=== PATIENT | female | born 1945 | race Hispanic/Latino ===

== ENCOUNTER → 2017-06-08 | Outpatient (CLI) | payer OTHER, MEDICARE ==
[~2017-06-08] MED LIST: IOPAMIDOL-370 75 ML VIAL IV ONE
== END | disposition home or self-care (01) ==
LOC: RAH 08:33
PROVIDERS: ATTEND Internal Medicine
DX: R10.84 Generalized abdominal pain (principal)
CPT/HCPCS: 74170; Q9967

== ENCOUNTER 2018-03-05 22:34 | Observation (INO) | payer OTHER, MEDICARE ==
[~2018-03-05] VITALS: Ht 157.5 cm; Wt 79.5 kg
[2018-03-05 22:56] LABS: BASOPHILS % (AUTO) 0.7 % (0.0-5.0); EOSINOPHILS % (AUTO) 6.1 % (0.0-8.0); HEMATOCRIT 36.4 % (36-48); LYMPHOCYTES % (AUTO) 25.8 % (21.0-51.0); MEAN CORPUSCULAR HEMOGLOBIN 28.6 pg (27.0-33.0); MEAN CORPUSCULAR HGB CONC 32.6 g/dL (32.0-36.0); MEAN CORPUSCULAR VOLUME 87.7 fL (79-99); MONOCYTES % (AUTO) 7.5 % (3.0-13.0); NEUTROPHILS % (AUTO) 59.9 % (40.0-77.0); NUCLEATED RED BLOOD CELLS 0.2 % (0.0-0.19); PLATELET COUNT (AUTO) 203 K/uL (130-400); RED BLOOD CELL COUNT(AUTO) 4.15 MIL/uL (4.00-5.50); RED CELL DISTRIBUTION WIDTH 14.3 % (11.0-15.5); WHITE BLOOD COUNT (AUTO) 6.7 K/uL (4.8-10.8)
[2018-03-05 23:07] LABS: INR 0.94 (0.85-1.15); PROTHROMBIN TIME 9.9 SEC (9.6-11.6)
[2018-03-05 23:10] LABS: APPEARANCE,URINE Clear (CLEAR); BILIRUBIN,URINE Negative (NEGATIVE); COLOR,URINE Yellow (YELLOW); GLUCOSE, URINE (UA) Negative (NEGATIVE); KETONES,URINE Negative (NEGATIVE); LEUKOCYTE ESTERASE ,URINE Trace (NEGATIVE); NITRATE,URINE Negative (NEGATIVE); OCCULT BLOOD,URINE Negative (NEGATIVE); PH,URINE 5.5 (5.0-8.0); PROTEIN,URINE Trace (NEGATIVE)
[2018-03-05 23:11] LABS: CREATININE 0.8 mg/dL (0.5-1.5); POTASSIUM 3.9 mmol/L (3.5-5.1)
[2018-03-05 23:16] LABS: ALBUMIN 3.5 g/dL (3.5-5.0); BILIRUBIN,TOTAL 0.2 mg/dL (0.2-1.0); TOTAL PROTEIN, SERUM 7.1 g/dL (6.0-8.3)
[2018-03-05 23:22] LABS: B-TYPE NATRIURETIC PEPTIDE 52 pg/mL (0-100)
[2018-03-05 23:30] LABS: BACTERIA,URINE None Seen /HPF (None Seen); MUCUS,URINE Few LPF (None Seen); RBC,URINE None Seen /HPF (0-1); SQUAMOUS EPITHELIAL CELL,UR Few /HPF (0-2)
[2018-03-05] MEDS ORDERED: SODIUM CHLORIDE 0.9% 1000ML 1,000 ML IV ONE (23:52)
[2018-03-06] VITALS (10 sets, daily range): BP systolic 109–153; BP diastolic 58–80
[2018-03-06 00:08] LABS: AMYLASE 51 U/L (25-115); LIPASE 133 U/L (114-286)
[2018-03-06] MEDS ORDERED: DEXTROSE 50%-WATER 50 ML DISP.SYRIN IV PRN (02:45)
[2018-03-06] MEDS ORDERED: GLUCAGON 1MG KIT 1 MG ML IM PRN (02:45)
[2018-03-06] MEDS ORDERED: NITROGLYCERIN 0.4 MG SL TAB SL PRN ×2 (02:45→07:45)
[2018-03-06] MEDS ORDERED: ACETAMINOPHEN 325 MG TAB PO PRN (02:45)
[2018-03-06] MEDS ORDERED: ONDANSETRON HCL 4 MG/2 ML VIAL IV PRN (02:45)
[2018-03-06 02:52] LABS: HEMOGLOBIN A1C 7.5 % (4.0-6.0)
[2018-03-06] MEDS ORDERED: LISI-613 PO (04:14)
[2018-03-06] MEDS ORDERED: LINA5TAB PO (04:14)
[2018-03-06] MEDS ORDERED: ONDA4TAB9 PO (04:20)
[2018-03-06] MEDS ORDERED: ISOS30TA6 PO (04:20)
[2018-03-06] MEDS ORDERED: PARO-37 PO (04:20)
[2018-03-06] MEDS ORDERED: FAMO40TA7 PO (04:24)
[2018-03-06] MEDS ORDERED: ATOR10 PO (04:24)
[2018-03-06] MEDS ORDERED: PANT40TA25 PO (04:28)
[2018-03-06] MEDS ORDERED: LORA10CA9 PO (04:28)
[2018-03-06] MEDS ORDERED: AEC81 PO (04:32)
[2018-03-06] MEDS ORDERED: MECL-111 PO (04:32)
[2018-03-06] MEDS ORDERED: QUET200T58 PO (04:32)
[2018-03-06] MEDS ORDERED: PROM25TA7 PO (04:35)
[2018-03-06] MEDS ORDERED: LOPE2CAP PO (04:35)
[2018-03-06] MEDS ORDERED: NITR0.4T50 SL (04:40)
[2018-03-06] MEDS ORDERED: SIME125C81 PO (04:40)
[2018-03-06] MEDS ORDERED: DIPH1TAB PO (04:41)
[2018-03-06] MEDS ORDERED: DIAZ2TAB3 PO (04:45)
[2018-03-06] MEDS ORDERED: GLYC2TAB21 PO (04:45)
[2018-03-06 04:58] LABS: AMPHET/METH SCREEN,URINE NEGATIVE (NEGATIVE); BARBITURATE SCREEN, URINE NEGATIVE (NEGATIVE); BENZODIAZEPINES SCREEN,URINE NEGATIVE (NEGATIVE); CANNABINOID SCREEN,URINE NEGATIVE (NEGATIVE); COCAINE SCREEN,URINE NEGATIVE (NEGATIVE); OPIATE SCREEN,URINE NEGATIVE (NEGATIVE); PHENCYCLIDINE SCREEN,URINE NEGATIVE (NEGATIVE)
[2018-03-06] MEDS ORDERED: DIATR MEGLU/DIATRIZOATE SODIUM 30 ML BOTTLE ONE (05:40)
[2018-03-06] MEDS: SODIUM CHLORIDE 0.9% 1000ML 1,000 ML IV SCH ×3 (05:41→22:34)
[2018-03-06] MEDS: INSULIN HUMULIN R 100 UNIT/ML 3ML SQ SCH ×4 (06:35→21:00)
[2018-03-06 06:50] LABS: BASOPHILS % (AUTO) 0.4 % (0.0-5.0); EOSINOPHILS % (AUTO) 5.6 % (0.0-8.0); HEMATOCRIT 32.3 % (36-48); LYMPHOCYTES % (AUTO) 33.6 % (21.0-51.0); MEAN CORPUSCULAR HEMOGLOBIN 28.9 pg (27.0-33.0); MEAN CORPUSCULAR HGB CONC 32.8 g/dL (32.0-36.0); MEAN CORPUSCULAR VOLUME 88.2 fL (79-99); MONOCYTES % (AUTO) 8.2 % (3.0-13.0); NEUTROPHILS % (AUTO) 52.2 % (40.0-77.0); PLATELET COUNT (AUTO) 197 K/uL (130-400); RED BLOOD CELL COUNT(AUTO) 3.66 MIL/uL (4.00-5.50); RED CELL DISTRIBUTION WIDTH 14.4 % (11.0-15.5); WHITE BLOOD COUNT (AUTO) 6.1 K/uL (4.8-10.8)
[2018-03-06 07:03] LABS: ALANINE AMINOTRANSFERASE 13 U/L (12-78); ASPARTATE AMINOTRANSFERASE 12 U/L (10-37); BILIRUBIN,TOTAL 0.4 mg/dL (0.2-1.0); CARBON DIOXIDE 29 mmol/L (21-32); CHLORIDE 108 mmol/L (101-111); CHOLESTEROL 106 mg/dL (<200); CREATINE KINASE, TOTAL 37 U/L (21-232); CREATININE 0.9 mg/dL (0.5-1.5); GLOMERULAR FILTR. RATE CALC 65 mL/min (>60); GLUCOSE,RANDOM 126 mg/dL (70-105); HDL CHOLESTEROL 42 mg/dL (35-85); LDL DIRECT 50 mg/dL (0-99); MYOGLOBIN 34 ng/mL (10-92); POTASSIUM 4.2 mmol/L (3.5-5.1); SODIUM SERUM 142 mmol/L (136-145); TOTAL PROTEIN, SERUM 6.4 g/dL (6.0-8.3); TRIGLYCERIDES 118 mg/dL (30-200); TROPONIN I < 0.04 ng/mL (0.00-0.06); UREA NITROGEN, BLOOD 10 mg/dL (7-18)
[2018-03-06] MEDS ORDERED: MECLIZINE HCL 25 MG TABLET PO PRN (07:45)
[2018-03-06] MEDS ORDERED: LORATADINE 10 MG TABLET PO PRN (07:45)
[2018-03-06] MEDS ORDERED: SIMETHICONE 80 MG TAB.CHEW PO PRN (07:45)
[2018-03-06] MEDS ORDERED: DIAZEPAM 2 MG TAB PO PRN (07:45)
[2018-03-06] MEDS ORDERED: GLYCOPYRROLATE 2 MG PO PRN (07:45)
[2018-03-06] MEDS ORDERED: IOHEXOL-350 75 ML VIAL IV ONE (08:28)
[2018-03-06] MEDS ORDERED: PANTOPRAZOLE SODIUM 40 MG TABLET.DR PO SCH (09:00)
[2018-03-06] MEDS ORDERED: LEVOFLOXACIN 250 MG/D5W 50ML 50 ML IV SCH (09:00)
[2018-03-06] MEDS: PAROXETINE HCL 20 MG TABLET PO SCH (10:07)
[2018-03-06] MEDS: LISINOPRIL 20 MG TABLET PO SCH (10:07)
[2018-03-06] MEDS: ISOSORBIDE MONO 30MG TAB SR PO SCH (10:08)
[2018-03-06] MEDS: ASPIRIN 81 MG EC TAB PO SCH (10:08)
[2018-03-06] MEDS: ENOXAPARIN SODIUM 30 MG/0.3 ML SQ SCH (10:09)
--- NOTE | 2018-03-06 10:30 | NUR ---
PATIENT STATES THAT HER CARDIOLOGYST IS DR. RAJAN. HOWEVER, DR. MORRELL IS BREAST WORKER TODAY. I CALLED DR. MORRELL AND INFORMED HIM ABOUT THE CONSULT. PER DR. MORRELL, HE WAS NOT GOING TO SEE THE PATIENT, BECAUSE SHE WAS ALREADY A PATIENT OF DR. RAJAN. I WAS INSTRUCTED TO CALL DR. RAJAN EVEN THOUGH HE IS NOT BREAST WORKER FOR TODAY. DR. RAJAN IS NOW AWARE OF THE CONSULT, HE WILL SEE THE PATIENT LATER TODAY OR TOMORROW.
--- NOTE | 2018-03-06 13:40 | NUR ---
CALL TO [facility] REGARDING CLARIFICATION OF INSURANCE T/C PLACED TO Angel[facility]. [facility] FOR HOSPITALIST, INFORMED THAT PT'S INSURANCE IS UPDATED AND WILL NEED TO SEE ANOTHER PROVIDER, STATES TO CALL WHEN OTHER PROVIDER ACCEPTS.
--- NOTE | 2018-03-06 13:45 | NUR ---
CALL TO DR. MELENDEZ T/C PLACED TO DR. MELENDEZ BY TIP BANDING MACHINE OPERATOR, Tracey FONTANEZ RN., PENDING CALL BACK.
--- NOTE | 2018-03-06 13:47 | NUR ---
CALL BACK FROM DR. MELENDEZ T/C FROM DR. MELENDEZ SPOKE WITH WET PROCESS OPERATOR JANEE ROBERTO AND WAS INFORMED HIM OF PT'S INSURANCE STATUS AND HAS BEEN SEEN ALREADY BY PROVIDER TODAY, STATES WILL COME AND SEE PT TOMORROW AND TO CALL HIM FOR ANY ISSUES.
--- NOTE | 2018-03-06 14:00 | NUR ---
TATIANA/DR. NORA MELENDEZ HERE TO INTRODUCE HIMSELF.
--- NOTE | 2018-03-06 14:35 | NUR ---
CARLOS Trinh PT/SPOUSE, [place] JORGE L, AAOX3, FLAT AFFECT, NO EYE CONTACT- LIVES W SPOUSE, PRIOR TO THIS ADMIT NO DME NO HH, NO MOBILITY DEFICITS; [employer] 5 DAYS WK 4 HRS DAY; HERE FOR SYNCOPE, 2ND EPISODE IN A FEW MONTHS; PCP ESTEE, LAST VISIT [facility], CHANGES TO MEDICINE; ASKED IF KEEPS LOG OF BG OR BP, STATES NO SHE HAS NO ONE TO TAKE HER B, AND NO DOES NOT KEEP RECORD OF BG. ENCOURAGED TO TO SO EVERY TIME THERE IS A CHANGE IN MEDICAIOTN. WILL FOLLOW NEEDED. PLAN IS HOME Addendum: 03/06/18 at 1439 by JUDAH DEJESUS RN CM Amended: Links added.
[2018-03-06] MEDS: METRONIDAZOLE 500 MG TABLET PO SCH ×2 (15:52→20:11)
[2018-03-06] MEDS: FAMOTIDINE 20MG TAB 20 MG TAB PO SCH (20:10)
--- NOTE | 2018-03-06 20:41 | NUR ---
CONSULT DR. RAJAN HERE TO SEE PATIENT. EVALUATED HER AND TOLD HER HE DOES NOT THINK HER PROBLEM IS HEART RELATED.
[2018-03-06] MEDS ORDERED: QUETIAPINE FUMARATE 100 MG TAB PO SCH (21:00)
[2018-03-06] MEDS ORDERED: LINAGLIPTIN 5 MG TABLET PO SCH (21:00)
[2018-03-06] MEDS ORDERED: ATORVASTATIN CALCIUM 10 MG TABLET PO SCH (21:00)
[2018-03-07 04:05] LABS: BASOPHILS % (AUTO) 0.5 % (0.0-5.0); EOSINOPHILS % (AUTO) 6.7 % (0.0-8.0); LYMPHOCYTES % (AUTO) 42.5 % (21.0-51.0); MEAN CORPUSCULAR HEMOGLOBIN 29.4 pg (27.0-33.0); MEAN CORPUSCULAR HGB CONC 33.6 g/dL (32.0-36.0); MEAN CORPUSCULAR VOLUME 87.5 fL (79-99); MONOCYTES % (AUTO) 9.2 % (3.0-13.0); NEUTROPHILS % (AUTO) 41.1 % (40.0-77.0); PLATELET COUNT (AUTO) 173 K/uL (130-400); RED BLOOD CELL COUNT(AUTO) 3.77 MIL/uL (4.00-5.50); RED CELL DISTRIBUTION WIDTH 14.2 % (11.0-15.5); WHITE BLOOD COUNT (AUTO) 5.2 K/uL (4.8-10.8)
[2018-03-07 04:18] LABS: CREATININE 0.9 mg/dL (0.5-1.5); MAGNESIUM 1.9 mg/dL (1.80-2.40); POTASSIUM 3.6 mmol/L (3.5-5.1)
[2018-03-07 04:24] VITALS: BP 145/92
[2018-03-07] MEDS: INSULIN HUMULIN R 100 UNIT/ML 3ML SQ SCH ×2 (06:20→16:30)
[2018-03-07] MEDS: SODIUM CHLORIDE 0.9% 1000ML 1,000 ML IV SCH (06:24)
[2018-03-07] MEDS: METRONIDAZOLE 500 MG TABLET PO SCH ×2 (06:24→14:39)
[2018-03-07 08:00] VITALS: BP_SYST 135; BP_SYST 143; BP_SYST 145; BP_SYST 155; BP_DIAS 67; BP_DIAS 68; BP_DIAS 77; BP_DIAS 78
[2018-03-07] MEDS: ASPIRIN 81 MG EC TAB PO SCH (09:54)
[2018-03-07] MEDS: PAROXETINE HCL 20 MG TABLET PO SCH (09:54)
[2018-03-07] MEDS: FAMOTIDINE 20MG TAB 20 MG TAB PO SCH (09:54)
[2018-03-07] MEDS: LISINOPRIL 20 MG TABLET PO SCH (09:54)
[2018-03-07] MEDS: ENOXAPARIN SODIUM 30 MG/0.3 ML SQ SCH (09:55)
[2018-03-07] MEDS: ISOSORBIDE MONO 30MG TAB SR PO SCH (09:55)
[2018-03-07 12:00] VITALS: BP 127/67
[2018-03-07 16:00] VITALS: BP 137/73
--- NOTE | 2018-03-07 18:20 | NUR ---
DISCHARGE PATIENT AND GIVEN DISCHARGE INSTRUCTIONS AND EDUCATION IN [place] ON FOLLOW UP APPOINTMENTS, NEW PRESCRIBED MEDICATIONS AND DISCONTINUED MEDICATIONS. PATIENT VERBALIZED UNDERSTANDING OF ALL EDUCATION GIVEN VIA TEACH BACK. IV DISCONTINUED, CATHETER INTACT. NO CONCERNS VOICED. NO DISTRESS NOTED UPON DISCHARGE. PATIENT LEFT VIA WHEELCHAIR TO PRIVATE CAR. PATIENT LEFT PHONE CARBON COATING MACHINE OPERATOR, SECURITY CALLED, CHARGED PLACED ON A BAG WITH PATIENT INFO ON IT.
== END 2018-03-07 18:20 | disposition home or self-care (01) ==
LOC: EDH 22:34 → EDHIP 03-06 02:19 → INTOOBSV 03-06 02:19 → 3AH 03-06 02:40
PROVIDERS: ADMIT Internal Medicine Critical Care Medicine; ATTEND Internal Medicine Critical Care Medicine
DX: R55 Syncope and collapse (principal); R10.9 Unspecified abdominal pain; E66.9 Obesity, unspecified; R19.7 Diarrhea, unspecified; E86.0 Dehydration; I10 Essential (primary) hypertension; E11.9 Type 2 diabetes mellitus without complications; E66.01 Morbid (severe) obesity due to excess calories; E78.5 Hyperlipidemia, unspecified; G47.33 Obstructive sleep apnea (adult) (pediatric); F41.9 Anxiety disorder, unspecified; Z95.0 Presence of cardiac pacemaker; Z83.3 Family history of diabetes mellitus; Z82.49 Family history of ischemic heart disease and other diseases of the circulatory system; Z80.0 Family history of malignant neoplasm of digestive organs; Z79.899 Other long term (current) drug therapy
CPT/HCPCS: 36415 ×3; 70450; 71045; 74178; 80048; 80053 ×2; 80061; 80305; 81001; 82150; 82550 ×2; 82948 ×7; 83036; 83630; 83690; 83735 ×2; 83874; 83880; 84443; 84484 ×3; 85025 ×3; 85610; 85730; 87088; 87177; 87324; 93005 ×3; 93306; 93880; 96361 ×2; 96365; 96372 ×2; 99284; G0378 ×40; J1650 ×2; J1956; J7030 ×4; Q9963; Q9967

== ENCOUNTER → 2018-10-08 | Outpatient (CLI) | payer OTHER, MEDICARE ==
[~2018-10-08] MED LIST changes: +AEC81 PO; +ATOR10 PO; +DIAZ2TAB3 PO; +IOHEXOL-350 75 ML VIAL IV ONE; -IOPAMIDOL-370 75 ML VIAL IV ONE; +ISOS30TA6 PO; +LINA5TAB PO; +LISI-613 PO; +LOPE2CAP PO; +LORA10CA9 PO; +MECL-111 PO; +NITR0.4T50 SL; +ONDA4TAB9 PO; +PARO-37 PO; +QUET200T29 PO; +SIME125C81 PO
== END | disposition home or self-care (01) ==
LOC: RAH 09:07
PROVIDERS: ATTEND Family Medicine
DX: R22.31 Localized swelling, mass and lump, right upper limb (principal); M25.841 Other specified joint disorders, right hand
CPT/HCPCS: 73201; Q9967

== ENCOUNTER → 2019-04-23 | Outpatient (CLI) | payer OTHER, MEDICARE ==
[~2019-04-23] MED LIST changes: -IOHEXOL-350 75 ML VIAL IV ONE; -MECL-111 PO; +MECL-160 PO; +ONDA-104 PO; -ONDA4TAB9 PO
== END | disposition home or self-care (01) ==
LOC: SHCH 10:53
PROVIDERS: ATTEND Internal Medicine Cardiovascular Disease
DX: I51.7 Cardiomegaly (principal)
CPT/HCPCS: 93306; 93356

== ENCOUNTER → 2019-04-29 | Outpatient (CLI) | payer OTHER, MEDICARE ==
[~2019-04-29] VITALS: Ht 157.5 cm; Wt 78.9 kg
[~2019-04-29] MED LIST changes: +REGADENOSON 0.4 MG/5 ML PF SYG IVP SCH
== END | disposition home or self-care (01) ==
LOC: SHCH 08:12
PROVIDERS: ATTEND Internal Medicine Cardiovascular Disease
DX: I10 Essential (primary) hypertension (principal); E11.9 Type 2 diabetes mellitus without complications; R94.31 Abnormal electrocardiogram [ECG] [EKG]; R06.02 Shortness of breath
CPT/HCPCS: 78452; 93017; 96374; A9500 ×2; J2785

== ENCOUNTER 2019-10-09 10:10 | Day surgery (SDC) | payer OTHER, MEDICARE ==
[2019-10-07 09:49] LABS: BASOPHILS % (AUTO) 0.5 % (0.0-5.0); EOSINOPHILS % (AUTO) 5.7 % (0.0-8.0); HEMATOCRIT 36.7 % (36-48); LYMPHOCYTES % (AUTO) 30.1 % (21.0-51.0); MEAN CORPUSCULAR HEMOGLOBIN 28.9 pg (27.0-33.0); MEAN CORPUSCULAR HGB CONC 32.4 g/dL (32.0-36.0); MEAN CORPUSCULAR VOLUME 89.1 fL (79-99); MONOCYTES % (AUTO) 7.4 % (3.0-13.0); NEUTROPHILS % (AUTO) 56.1 % (40.0-77.0); PLATELET COUNT (AUTO) 256 K/uL (130-400); RED BLOOD CELL COUNT(AUTO) 4.12 MIL/uL (4.00-5.50); RED CELL DISTRIBUTION WIDTH 15.3 % (11.0-15.5); WHITE BLOOD COUNT (AUTO) 6.1 K/uL (4.8-10.8)
[2019-10-07 10:01] LABS: INR 0.88 (0.85-1.15); PARTIAL THROMBOPLASTIN TIME 25.9 SEC (26.3-35.5); PROTHROMBIN TIME 9.5 SEC (9.6-11.6)
[2019-10-07 10:04] LABS: CREATININE 0.8 mg/dL (0.5-1.5); POTASSIUM 4.9 mmol/L (3.5-5.1)
[2019-10-09] VITALS (7 sets, daily range): BP systolic 90–145; BP diastolic 43–71
[~2019-10-09] VITALS: Ht 154.9 cm; Wt 78.0 kg
[~2019-10-09 10:10] MED LIST changes: -DIAZ2TAB3 PO; +GLYC2TAB21 PO; -LOPE2CAP PO; -MECL-160 PO; -ONDA-104 PO; +PANT40TA PO; -REGADENOSON 0.4 MG/5 ML PF SYG IVP SCH
[2019-10-09] MEDS ORDERED: ONDA4TAB4 PO (11:30)
[2019-10-09] MEDS ORDERED: LIDOCAINE HCL 1% MDV 50ML VIAL ONE (12:33)
[2019-10-09] MEDS ORDERED: MEPERIDINE-PF 25 MG/ML SYG ONE ×2 (12:33→13:32)
[2019-10-09] MEDS ORDERED: MIDAZOLAM HCL 1 MG/ML 2ML VIAL ONE ×2 (12:33→13:32)
[2019-10-09] MEDS ORDERED: CEFAZOLIN SODIUM 1 GM VIAL ONE (12:33)
[2019-10-09] MEDS ORDERED: BUPIVACAINE/PF 0.25% 30ML VIAL IJ ONE (12:33)
[2019-10-09] MEDS ORDERED: VANCOMYCIN 1GM+NS 250ML 500 ML IV ONE (13:01)
[2019-10-09] MEDS ORDERED: TRAM50TA4 PO (13:59)
[2019-10-09] MEDS ORDERED: ACETAMINOPHEN-CODEINE 300/30MG TAB PO PRN (14:00)
--- NOTE | 2019-10-09 17:11 | NUR ---
PT AAOX3, NO DISTRESS, NO C/O PAIN TO LUE. PACEMAKER SITE DRESSING IS D/T WITH QUATER SIZE SCANT AMOUNT OF RED BLOOD. NO OOZING OR ACTIVE BLEEDING, NO HEMATOMA NOTED. INSTRUCTIONS AND PRESCRIPTION GIVEN TO SPOUSE. PT DRESSED WITH ASSISTANCE, IV D/C CATHETER INTACT. PT TAKEN OUT TO CAR VIA W/C, DRIVEN HOME BY SPOUSE. PT STABLE. PERSONAL BELONGING WITH PT.
== END 2019-10-09 17:11 | disposition home or self-care (01) ==
LOC: DAH 10:10
PROVIDERS: ATTEND Internal Medicine Cardiovascular Disease
DX: Z45.010 Encounter for checking and testing of cardiac pacemaker pulse generator [battery] (principal); I49.5 Sick sinus syndrome; I48.0 Paroxysmal atrial fibrillation; I10 Essential (primary) hypertension; E11.9 Type 2 diabetes mellitus without complications; E78.5 Hyperlipidemia, unspecified; K21.9 Gastro-esophageal reflux disease without esophagitis; Z98.890 Other specified postprocedural states; Z79.84 Long term (current) use of oral hypoglycemic drugs; Z79.82 Long term (current) use of aspirin; Z79.899 Other long term (current) drug therapy
CPT/HCPCS: 33228; 36415; 80048; 82948; 85025; 85610; 85730; A4215; A4216; A4221; A4222; A4223 ×3; A4606; A4663; C1785; J2175 ×2; J2250 ×2; J3370; J3490 ×2; 99156; 99157; J0690

== ENCOUNTER → 2020-01-14 | Outpatient (CLI) | payer OTHER, MEDICARE ==
[~2020-01-14] MED LIST changes: +ONDA4TAB4 PO; +TRAM50TA4 PO
== END | disposition home or self-care (01) ==
LOC: SHCH 15:36
PROVIDERS: ATTEND Internal Medicine Cardiovascular Disease
DX: I87.2 Venous insufficiency (chronic) (peripheral) (principal)
CPT/HCPCS: 93970

== ENCOUNTER → 2021-06-06 | Outpatient (CLI) | payer OTHER, MEDICARE ==
[~2021-06-06] MED LIST changes: -ISOS30TA6 PO; +ISOS30TA92 PO; -LISI-613 PO; +LISI20TA24 PO; -QUET200T29 PO; +QUET200T30 PO
== END | disposition home or self-care (01) ==
LOC: SHCH 09:28
PROVIDERS: ATTEND Internal Medicine Cardiovascular Disease
DX: I73.9 Peripheral vascular disease, unspecified (principal)
CPT/HCPCS: 93925

== ENCOUNTER 2022-08-21 04:11 | Emergency (ER) | payer OTHER, MEDICARE ==
[~2022-08-21] VITALS: Ht 157.5 cm; Wt 83.9 kg
[~2022-08-21 04:11] MED LIST changes: +ACET-2079 PO; +DILT120C89 PO; +FAMO20TA8 PO; +IBUP-1493 PO; +MECL-160 PO; +MELO-106 PO; +ORPH100T4 PO; +PANT40TA54 PO; +PIOG15TA66 PO
[2022-08-21 04:35] LABS: BASOPHILS % (AUTO) 0.4 % (0.0-5.0); EOSINOPHILS % (AUTO) 4.4 % (0.0-8.0); HEMATOCRIT 33.9 % (36-48); LYMPHOCYTES % (AUTO) 20.1 % (21.0-51.0); MEAN CORPUSCULAR HEMOGLOBIN 28.8 pg (27.0-33.0); MEAN CORPUSCULAR HGB CONC 32.2 g/dL (32.0-36.0); MEAN CORPUSCULAR VOLUME 89.4 fL (79-99); MONOCYTES % (AUTO) 8.8 % (3.0-13.0); NEUTROPHILS % (AUTO) 65.9 % (40.0-77.0); PLATELET COUNT (AUTO) 176 K/uL (130-400); RED BLOOD CELL COUNT(AUTO) 3.79 MIL/uL (4.00-5.50); RED CELL DISTRIBUTION WIDTH 16.2 % (11.0-15.5); WHITE BLOOD COUNT (AUTO) 7.9 K/uL (4.8-10.8)
[2022-08-21 04:51] LABS: APPEARANCE,URINE CLEAR (CLEAR); BILIRUBIN,URINE NEGATIVE (NEGATIVE); GLUCOSE, URINE (UA) NEGATIVE (NEGATIVE); KETONES,URINE NEGATIVE (NEGATIVE); LEUKOCYTE ESTERASE ,URINE 75 Leu/uL (NEGATIVE); NITRATE,URINE NEGATIVE (NEGATIVE); OCCULT BLOOD,URINE NEGATIVE (NEGATIVE); PH,URINE 5.5 (5.0-8.0); PROTEIN,URINE NEGATIVE (NEGATIVE); UROBILINOGEN,URINE 0.2 mg/dL (0.2-1.0)
[2022-08-21 04:55] LABS: COLOR,URINE Light-Yellow (YELLOW)
[2022-08-21 04:56] LABS: CREATININE 0.8 mg/dL (0.5-1.5); POTASSIUM 4.6 mmol/L (3.5-5.1)
[2022-08-21 05:00] LABS: ALBUMIN 3.7 g/dL (3.5-5.0); TOTAL PROTEIN, SERUM 7.4 g/dL (6.0-8.3)
[2022-08-21 05:01] LABS: BACTERIA,URINE FEW /HPF (None Seen); RBC,URINE 0-1 /HPF (0-1); SQUAMOUS EPITHELIAL CELL,UR RARE /HPF (0-2)
[2022-08-21 05:36] VITALS: BP 152/60; PULSE 81; RESP 16
[2022-08-21] MEDS ORDERED: IBUP-1493 PO (06:27)
[2022-08-21] MEDS ORDERED: MECL-262 PO (06:27)
== END 2022-08-21 06:47 | disposition home or self-care (01) ==
LOC: EDH 04:11
DX: R51.9 Headache, unspecified (principal); R42 Dizziness and giddiness; R06.02 Shortness of breath; R11.0 Nausea; I10 Essential (primary) hypertension; E11.9 Type 2 diabetes mellitus without complications; E78.00 Pure hypercholesterolemia, unspecified; Z90.49 Acquired absence of other specified parts of digestive tract; Z88.0 Allergy status to penicillin
CPT/HCPCS: 36415; 71045; 80053; 81001; 83874; 83880; 84484; 85025; 87077; 87088; 87186; 93005

== ENCOUNTER 2023-02-23 20:57 | Emergency (ER) | payer MEDICARE, OTHER ==
[~2023-02-23] VITALS: Ht 152.4 cm; Wt 81.6 kg
[~2023-02-23 20:57] MED LIST changes: -MECL-160 PO; +MECL-262 PO; +MECL-302 PO; -TRAM50TA4 PO
[2023-02-23 21:35] LABS: APPEARANCE,URINE CLEAR (CLEAR); BILIRUBIN,URINE NEGATIVE (NEGATIVE); COLOR,URINE COLORLESS (YELLOW); GLUCOSE, URINE (UA) NEGATIVE (NEGATIVE); KETONES,URINE NEGATIVE (NEGATIVE); LEUKOCYTE ESTERASE ,URINE 75 Leu/uL (NEGATIVE); NITRATE,URINE NEGATIVE (NEGATIVE); OCCULT BLOOD,URINE NEGATIVE (NEGATIVE); PROTEIN,URINE NEGATIVE (NEGATIVE); UROBILINOGEN,URINE 0.2 mg/dL (0.2-1.0)
[2023-02-23 21:36] LABS: ADD UA MICROSCOPIC YES
[2023-02-23 21:42] LABS: BACTERIA,URINE MANY /HPF (None Seen); MUCUS,URINE RARE LPF (None Seen); RBC,URINE 0-1 /HPF (0-1); SQUAMOUS EPITHELIAL CELL,UR FEW /HPF (0-2)
[2023-02-23 21:59] LABS: BASOPHILS # (AUTO) 0.02 K/uL (0.00-0.20); BASOPHILS % (AUTO) 0.3 % (0.0-5.0); EOSINOPHILS # (AUTO) 0.31 K/uL (0.00-0.70); EOSINOPHILS % (AUTO) 4.9 % (0.0-8.0); HEMATOCRIT 32.8 % (36-48); IMMATURE GRANULOCYTE ABSOLUTE 0.02 K/uL (0-1); LYMPHOCYTES # (AUTO) 1.6 K/uL (1.0-4.8); LYMPHOCYTES % (AUTO) 24.3 % (21.0-51.0); MEAN CORPUSCULAR HEMOGLOBIN 29.3 pg (27.0-33.0); MEAN CORPUSCULAR HGB CONC 32.9 g/dL (32.0-36.0); MEAN CORPUSCULAR VOLUME 88.9 fL (79-99); MONOCYTES # (AUTO) 0.6 K/uL (0.1-1.0); MONOCYTES % (AUTO) 9.2 % (3.0-13.0); NEUTROPHILS # (AUTO) 3.9 K/uL (1.8-7.7); PLATELET COUNT (AUTO) 170 K/uL (130-400); RED BLOOD CELL COUNT(AUTO) 3.69 MIL/uL (4.00-5.50); RED CELL DISTRIBUTION WIDTH 15.9 % (11.0-15.5); WHITE BLOOD COUNT (AUTO) 6.4 K/uL (4.8-10.8)
[2023-02-23 22:19] LABS: CREATININE 0.9 mg/dL (0.5-1.5); POTASSIUM 4.2 mmol/L (3.5-5.1)
[2023-02-23 22:24] LABS: ALBUMIN 3.9 g/dL (3.5-5.0); BILIRUBIN,TOTAL 0.2 mg/dL (0.2-1.0); TOTAL PROTEIN, SERUM 8.3 g/dL (6.0-8.3)
[2023-02-24] MEDS ORDERED: ACETAMINOPHEN 325 MG TAB PO ONE (02:00)
[2023-02-24] MEDS ORDERED: IBUP-1493 PO (02:40)
[2023-02-24 03:21] VITALS: BP 150/73; PULSE 76; RESP 18; O2SAT 100
== END 2023-02-24 03:23 | disposition home or self-care (01) ==
LOC: EDH 20:57
DX: S09.8XXA Other specified injuries of head, initial encounter (principal); M25.521 Pain in right elbow; M54.9 Dorsalgia, unspecified; M54.2 Cervicalgia; I10 Essential (primary) hypertension; E78.00 Pure hypercholesterolemia, unspecified; Z90.49 Acquired absence of other specified parts of digestive tract; Z79.82 Long term (current) use of aspirin; Z79.84 Long term (current) use of oral hypoglycemic drugs; Z79.899 Other long term (current) drug therapy; Z98.890 Other specified postprocedural states; W18.39XA Other fall on same level, initial encounter; Y93.89 Activity, other specified; Y92.89 Other specified places as the place of occurrence of the external cause; Y99.8 Other external cause status
CPT/HCPCS: 36415; 70450; 71045; 72125; 73070; 80053; 81001; 82550; 84484; 85025; 87077; 87088; 87186; 93005

== ENCOUNTER → 2023-05-29 | Outpatient (CLI) | payer OTHER ==
[2023-05-29] MEDS: REGADENOSON 0.4 MG/5 ML PF SYG IVP ONE (14:45)
== END | disposition home or self-care (01) ==
LOC: SHCH 08:39
PROVIDERS: ATTEND Internal Medicine Cardiovascular Disease
DX: I25.10 Atherosclerotic heart disease of native coronary artery without angina pectoris (principal); R06.09 Other forms of dyspnea; I49.5 Sick sinus syndrome; Z95.0 Presence of cardiac pacemaker
CPT/HCPCS: 78452; 96374; 93017; J2785; A9500 ×2

== ENCOUNTER 2023-06-28 20:44 | Emergency (ER) | payer OTHER ==
[~2023-06-28] VITALS: Ht 152.4 cm; Wt 82.6 kg
[2023-06-28 21:30] LABS: APPEARANCE,URINE CLOUDY (CLEAR); BILIRUBIN,URINE NEGATIVE (NEGATIVE); COLOR,URINE YELLOW (YELLOW); GLUCOSE, URINE (UA) NEGATIVE (NEGATIVE); KETONES,URINE 5 mg/dL (NEGATIVE); LEUKOCYTE ESTERASE ,URINE 500 Leu/uL (NEGATIVE); NITRATE,URINE NEGATIVE (NEGATIVE); OCCULT BLOOD,URINE NEGATIVE (NEGATIVE); PROTEIN,URINE 10 mg/dL (NEGATIVE); UROBILINOGEN,URINE 0.2 mg/dL (0.2-1.0)
[2023-06-28 21:34] LABS: ADD UA MICROSCOPIC YES
[2023-06-28 21:37] LABS: BASOPHILS # (AUTO) 0.02 K/uL (0.00-0.20); BASOPHILS % (AUTO) 0.3 % (0.0-5.0); EOSINOPHILS # (AUTO) 0.23 K/uL (0.00-0.70); EOSINOPHILS % (AUTO) 3.4 % (0.0-8.0); HEMATOCRIT 33.2 % (36-48); IMMATURE GRANULOCYTE ABSOLUTE 0.02 K/uL (0-1); LYMPHOCYTES # (AUTO) 1.7 K/uL (1.0-4.8); LYMPHOCYTES % (AUTO) 25.1 % (21.0-51.0); MEAN CORPUSCULAR HEMOGLOBIN 28.9 pg (27.0-33.0); MEAN CORPUSCULAR HGB CONC 32.2 g/dL (32.0-36.0); MEAN CORPUSCULAR VOLUME 89.7 fL (79-99); MONOCYTES # (AUTO) 0.7 K/uL (0.1-1.0); NEUTROPHILS # (AUTO) 4.1 K/uL (1.8-7.7); NEUTROPHILS % (AUTO) 60.9 % (40.0-77.0); PLATELET COUNT (AUTO) 187 K/uL (130-400); RED CELL DISTRIBUTION WIDTH 15.6 % (11.0-15.5); WHITE BLOOD COUNT (AUTO) 6.7 K/uL (4.8-10.8)
[2023-06-28 21:39] LABS: BACTERIA,URINE MANY /HPF (None Seen); NON-SQUAMOUS EPITHELIAL CELL 2 /HPF (0-2); SQUAMOUS EPITHELIAL CELL,UR FEW /HPF (0-2); WBC CLUMP FEW /HPF (0-1); WBC,URINE TNTC /HPF (0-1)
[2023-06-28] MEDS: MECLIZINE HCL 25 MG TABLET PO ONE (21:46)
[2023-06-28 21:47] LABS: CREATININE 1.7 mg/dL (0.5-1.0); POTASSIUM 4.8 mmol/L (3.5-5.1)
[2023-06-28 21:57] LABS: ALBUMIN 3.5 g/dL (3.5-5.0); BILIRUBIN,TOTAL 0.2 mg/dL (0.2-1.0); TOTAL PROTEIN, SERUM 7.9 g/dL (6.0-8.3)
[2023-06-28 22:55] VITALS: BP 122/60; PULSE 76; RESP 16; O2SAT 99
[2023-06-28] MEDS ORDERED: NITR100C4 PO (23:06)
[2023-06-28] MEDS ORDERED: MECL-302 PO (23:06)
[2023-06-28] MEDS: NITROFURANTOIN MONOHYD/M-CRYST 100 MG CAPSULE PO ONE (23:15)
== END 2023-06-28 23:21 | disposition home or self-care (01) ==
LOC: EDH 20:44
DX: H81.10 Benign paroxysmal vertigo, unspecified ear (principal); N39.0 Urinary tract infection, site not specified; I10 Essential (primary) hypertension; E11.9 Type 2 diabetes mellitus without complications; E78.00 Pure hypercholesterolemia, unspecified; Z79.82 Long term (current) use of aspirin; Z79.84 Long term (current) use of oral hypoglycemic drugs; Z79.899 Other long term (current) drug therapy; Z90.49 Acquired absence of other specified parts of digestive tract; Z98.890 Other specified postprocedural states; Z88.0 Allergy status to penicillin; Z88.8 Allergy status to other drugs, medicaments and biological substances
CPT/HCPCS: 36415; 70450; 71045; 80053; 81001; 83690; 84484; 85025; 87077; 87088; 87186; 93005

== ENCOUNTER → 2023-07-06 | Outpatient (CLI) | payer OTHER ==
[~2023-07-06] MED LIST changes: +NITR100C4 PO
== END | disposition home or self-care (01) ==
LOC: SHCH 15:19
PROVIDERS: ATTEND Internal Medicine Cardiovascular Disease
DX: I08.3 Combined rheumatic disorders of mitral, aortic and tricuspid valves (principal); I25.10 Atherosclerotic heart disease of native coronary artery without angina pectoris; I49.5 Sick sinus syndrome; E11.9 Type 2 diabetes mellitus without complications; R06.09 Other forms of dyspnea; R07.9 Chest pain, unspecified
CPT/HCPCS: 93306; 93356

== ENCOUNTER → 2024-05-22 | Outpatient (CLI) | payer OTHER | END | disposition home or self-care (01) | LOC: SHCH 13:40 | PROVIDERS: ATTEND Internal Medicine Cardiovascular Disease | DX: I08.3 Combined rheumatic disorders of mitral, aortic and tricuspid valves (principal); R07.9 Chest pain, unspecified; R06.09 Other forms of dyspnea; I87.2 Venous insufficiency (chronic) (peripheral); I70.203 Unspecified atherosclerosis of native arteries of extremities, bilateral legs | CPT/HCPCS: 93306; 93925; 93970 ==